=== PATIENT | female | born 1995 | race Caucasian/White ===

== ENCOUNTER 2019-05-27 13:36 | Outpatient (RCR) | payer OTHER, MEDICAID, SELFPAY ==
[2019-05-28] MEDS: RHO(D) IMMUNE GLOBULIN 300 MCG SYRINGE IM (13:28)
== END 2019-08-25 23:59 | disposition home or self-care (01) ==
LOC: ANHLAB 13:36
PROVIDERS: PCP Physician Assistant; Visit Provider Obstetrics & Gynecology
DX: Z29.13 Encounter for prophylactic Rho(D) immune globulin (principal); O36.0990 Maternal care for other rhesus isoimmunization, unspecified trimester, not applicable or unspecified; Z3A.00 Weeks of gestation of pregnancy not specified
CPT/HCPCS: 36415; 86900; 86901; 90384; 96372; J2790

== ENCOUNTER 2019-08-04 09:43 | Inpatient (IN) | payer OTHER, MEDICAID, SELFPAY ==
[2019-08-04] VITALS (59 sets, daily range): BP systolic 95–135; BP diastolic 46–99; PULSE 26–111; RESP 14–20; TEMP 36.1–36.7; O2SAT 90–100; BMI 35.9
--- NOTE | 2019-08-04 10:30 | LDADM ---
This patient, Lori Zamora, was admitted to Labor/Delivery/Recovery 120 on 08/04/19 at 09:43. Plans for surgery/ and pain management were discussed with patient. Patient/family oriented to hospital policies and general routines including ID bracelet, bed and alarms, visiting hours, pain management, procedures, bathroom and other care routines, personal items, smoking policy, room service/diet and guest tray routines, security routines, and visiting hours. Patient/Family are encouraged to report perceived risks to care and to ask questions if they do not understand what they are told or what they should do. See OBIX for further documentation.
[2019-08-04 10:46] LABS: Basophils Percent Auto 0.2 % (0.2-1.2); Eosinophils Absolute Auto 0.1 K/mm3 (0-0.3); Eosinophils Percent Auto 0.6 % (0-4.4); Hematocrit 34.4 % (37.0-47.0); Hemoglobin 11.3 g/dL (12.0-15.0); Immature Granulocyte Absolute 0.05 K/mm3 (0.00-0.031); Immature Granulocyte Percent A 0.4 % (0-0.5); Lymphocytes Absolute Auto 1.58 K/mm3 (0.9-3.2); Lymphocytes Percent Auto 12.8 % (18.3-44.2); Mean Corpuscular HGB Conc 32.8 g/dl (32-36); Mean Corpuscular Hemoglobin 29.7 pg (26-34); Mean Corpuscular Volume 90.5 fl (80-100); Mean Platelet Volume 10.1 fl (7.4-10.4); Monocytes Absolute Auto 0.8 K/mm3 (0.1-0.6); Monocytes Percent Auto 6.3 % (2.6-8.5); Neutrophils Absolute Auto 9.8 K/mm3 (1.3-6.7); Neutrophils Percent Auto 79.7 % (45.5-73.1); Platelet Count Result 316 k/mm3 (150-375); Red Cell Distribution Width 13.1 % (11.5-14.5); White Blood Count 12.3 K/mm3 (4.5-10.0)
[2019-08-04] MEDS: LACTATED RINGERS 1,000 ML 999 ML IV CONT ×2 (11:05→11:35)
--- NOTE | 2019-08-04 11:12 | WPDANESEPPF ---
Anes - Initial Pre Proc Eval Procedure: Operation Date: 08/04/19 12:00 Proposed Procedures p Repeat Section With Bilateral Tubal Ligation - Marquez Payan MD Date/Time: 08/04/19 11:12 Surgeon: Marquez Payan MD Pre Op Diagnosis: Prior / Desires Sterilization Patient Data Age: 23 Gender: F Height: 5 ft 8 in Weight: 107.3 kg Last Vital Signs Pulse 83 08/04/19 10:54 BP 122/75 08/04/19 10:54 Allergies Allergy/AdvReac Type Severity Reaction Status Date / Time No Known Allergies Allergy Verified 08/04/19 10:26 Home Medications Medication Instructions Recorded Confirmed Type aripiprazole 5 mg PO DAILY 08/04/19 08/04/19 History aripiprazole 10 mg PO DAILY 08/04/19 08/04/19 History aspirin 81 mg PO DAILY 08/04/19 08/04/19 History bupropion HCl 150 mg PO DAILY 08/04/19 08/04/19 History calcium carbonate-vitamin D3 1 tablet PO DAILY 08/04/19 08/04/19 History cetirizine 10 mg PO DAILY PRN 08/04/19 08/04/19 History citalopram 40 mg PO DAILY 08/04/19 08/04/19 History folic acid 1 mg PO DAILY 08/04/19 08/04/19 History vit-iron fum-folic ac 1 tablet PO DAILY 08/04/19 08/04/19 History [ Vitamin] Laboratory Tests 08/04/19 08/04/19 10:36 10:36 WBC 12.3 K/mm3 H K/mm3 (4.5-10.0) RBC 3.80 M/mm3 L M/mm3 (4.2-5.4) Hgb 11.3 g/dL L g/dL (12.0-15.0) Hct 34.4 % L % (37.0-47.0) MCV 90.5 fl fl (80-100) MCH 29.7 pg pg (26-34) MCHC 32.8 g/dl g/dl (32-36) RDW 13.1 % % (11.5-14.5) Plt Count 316 k/mm3 k/mm3 (150-375) MPV 10.1 fl fl (7.4-10.4) Immature Gran % (Auto) 0.4 % % (0-0.5) Neut % (Auto) 79.7 % H % (45.5-73.1) Lymph % (Auto) 12.8 % L % (18.3-44.2) [place] % (Auto) 6.3 % % (2.6-8.5) Eos % (Auto) 0.6 % % (0-4.4) Baso % (Auto) 0.2 % % (0.2-1.2) Lymph # (Auto) 1.58 K/mm3 K/mm3 (0.9-3.2) [place] # (Auto) 0.8 K/mm3 H K/mm3 (0.1-0.6) Eos # (Auto) 0.1 K/mm3 K/mm3 (0-0.3) Baso # (Auto) 0.0 K/mm3 K/mm3 (0.0-0.1) Abs Immat Gran (auto) 0.05 K/mm3 H K/mm3 (0.00-0.031) Absolute Neuts (auto) 9.8 K/mm3 H K/mm3 (1.3-6.7) Absolute Nucleated RBC 0.0 K/mm3 K/mm3 (0.0-0.012) Nucleated RBC % 0.0 % % (0.0-0.2) RPR Pending Patient hx anesthesia problems: none Family hx anesthesia problems: none PMFSH Past Medical History Medical History ADHD Anxiety Anes - Eval Final PreProcedure Day of Procedure 08/04/19 11:12 Patient weight: obese Heart: regular rate and rhythm Lungs: clear to auscultation Airway: Mallampati scale class II Neurological: alert and oriented Last oral intake: >/= 8 hours ASA classification: III Emergent: no Anesthetic plan: proceed Anesthesia type and monitoring: regional spinal and standard monitoring Informed Consent: The patient's anesthetic plan and its attendant risks and benefits were discussed with the patient/family/POA. Questions were solicited and answers provided to the satisfaction of the patient/family/POA.
--- NOTE | 2019-08-04 11:26 | P.HP_ITS ---
H&P: HPI History of Present Illness Chief complaint: Prior / Desires Sterilization Narrative: Lori Zamora is 23-year-old 011 who has had care with Dr. Cantu records are on the chart there have been no significant abnormalities. Presents for repeat delivery. Also discussed p ermanence failure rate increased risk of ectopic and regret for tubal ligation she does desire to proceed. Review of Systems Review of Systems: All systems reviewed & are unremarkable except as noted in HPI and below PMFSH Past Medical History Medical History ADHD Anxiety Meds Home Medications and Allergies Home Medications Medication Instructions Recorded Confirmed Type aripiprazole 5 mg PO DAILY 08/04/19 08/04/19 History aripiprazole 10 mg PO DAILY 08/04/19 08/04/19 History aspirin 81 mg PO DAILY 08/04/19 08/04/19 History bupropion HCl 150 mg PO DAILY 08/04/19 08/04/19 History calcium carbonate-vitamin D3 1 tablet PO DAILY 08/04/19 08/04/19 History cetirizine 10 mg PO DAILY PRN 08/04/19 08/04/19 History citalopram 40 mg PO DAILY 08/04/19 08/04/19 History folic acid 1 mg PO DAILY 08/04/19 08/04/19 History vit-iron fum-folic ac 1 tablet PO DAILY 08/04/19 08/04/19 History [ Vitamin] Allergies Allergy/AdvReac Type Severity Reaction Status Date / Time No Known Allergies Allergy Verified 08/04/19 10:26 Vital Signs Vital Signs - 24 hr 08/04/19 10:54 Pulse Rate 83 Blood Pressure 122/75 Exam Const: General: no acute distress Resp: Auscultation: clear to auscultation bilaterally Cardio: Rate: regular rate Rhythm: regular rhythm GI: GI Palp: Yes Soft to palpation Other: Fundal height of 39cm heart tones 140. H&P: Results Labs Labs: Short CBC 08/04/19 Range/Units 10:36 WBC 12.3 H (4.5-10.0) K/mm3 Hgb 11.3 L (12.0-15.0) g/dL Hct 34.4 L (37.0-47.0) % Plt Count 316 (150-375) k/mm3 Assessment and Plan Assessment and plan (1) Term : Code(s): Z34.90 - Encounter for supervision of normal , unspecified, unspecified trimester Status: Acute (2) Previous delivery affecting : Code(s): O34.219 - Maternal care for unspecified type scar from previous delivery Status: Acute (3) Encounter for female sterilization procedure: Code(s): Z30.2 - Encounter for sterilization Status: Acute Additional Plan Proceed with repeat delivery and bilateral tubal ligation.
[2019-08-04] MEDS: ceFAZolin 2 GM/D5W 50 ML 2 GM/50 ML BAG IVPB (11:45)
--- NOTE | 2019-08-04 12:32 | PM.OBPRVD ---
OB - Delivery Note Procedure Procedure: Procedures Operation Date: 08/04/19 12:00 <No data on this case meets the specified criteria> Route of delivery: (With bilateral tubal ligation) Specimen: Yes (Fallopian tube x2) Estimated blood loss (mL): 200 Anesthesia type: Spinal Disposition: PACU Narrative: Patient prepped and draped usual manner for this procedure. Pfannenstiel incision was made carried down the fascia. Fascial incision was extended bilaterally the length of the skin incisions. Superiorly and inferiorly dissected away from the rectus muscles. Peritoneum was readily entered bladder flap was developed. Uterus scored with clear fluid noted extended bilaterally the length of the lower segment. Vertex was delivered with nuchal cord reduced x2 rest of baby was then delivered with the cord clamped and cut and the placenta delivered manually. Uterus was exteriorized cleared of membranes and clots and closed using 0 Monocryl in a running interlocking manner with good approximation hemostasis noted. Bilaterally the fallopian tubes were grasped doubly ligated using 0 plain suture in the loop of tissue was removed. The uterus was returned to the abdomen both stumps were hemostatic and intact. Fascia was then approximated using 0 Vicryl from left angle midline and then the right angle to the midline with good approximation hemostasis noted. Subcutaneous tissue was approximated 0 0 plain suture. [place] were then used to approximate skin edges. At this point seizure was considered terminated with immediate postop condition mother baby both excellent. Baby Weeks of gestation at delivery: 39 gender: Male Weight (pounds): 7 Weight (ounces): 14 score one minute: 8 score five minutes: 9
[2019-08-04] MEDS: OXYTOCIN 30 UNITS/NS 500 ML 30 UNITS/500 ML BAG 125 UNITS IV CONT (14:57)
--- NOTE | 2019-08-04 15:28 | PC.NURSE ---
Patient transferred to post room #285 per stretcher from labor and delivery. Support person present. Oriented to unit, room, information board, rooming in, admission packet and security measures. Patient verbalizes understanding.
[2019-08-04] MEDS: KETOROLAC 30 MG/ML VIAL (*BKC) IV PUSH (17:03)
[2019-08-04] MEDS: DEXTROSE 5%/0.45% SOD CHL 1,000 ML 125 ML IV CONT (19:22)
[2019-08-05] MEDS: IBUPROFEN 600 MG TABLET PO ×4 (01:38→21:30)
[2019-08-05 04:30] VITALS: BP 103/63; PULSE 77; RESP 16; TEMP 36.8; O2SAT 99
[2019-08-05 05:39] LABS: Basophils Percent Auto 0.2 % (0.2-1.2); Eosinophils Absolute Auto 0.1 K/mm3 (0-0.3); Eosinophils Percent Auto 0.8 % (0-4.4); Hematocrit 29.6 % (37.0-47.0); Hemoglobin 9.6 g/dL (12.0-15.0); Immature Granulocyte Absolute 0.04 K/mm3 (0.00-0.031); Immature Granulocyte Percent A 0.3 % (0-0.5); Lymphocytes Absolute Auto 1.33 K/mm3 (0.9-3.2); Lymphocytes Percent Auto 10.9 % (18.3-44.2); Mean Corpuscular HGB Conc 32.4 g/dl (32-36); Mean Corpuscular Hemoglobin 29.5 pg (26-34); Mean Corpuscular Volume 91.1 fl (80-100); Mean Platelet Volume 10.2 fl (7.4-10.4); Monocytes Absolute Auto 1.2 K/mm3 (0.1-0.6); Monocytes Percent Auto 10.1 % (2.6-8.5); Neutrophils Absolute Auto 9.4 K/mm3 (1.3-6.7); Neutrophils Percent Auto 77.7 % (45.5-73.1); Platelet Count Result 246 k/mm3 (150-375); Red Blood Count 3.25 M/mm3 (4.2-5.4); White Blood Count 12.2 K/mm3 (4.5-10.0)
[2019-08-05 07:40] LABS: Rapid Plasma Reagin Non-Reactive (NonReactive)
[2019-08-05 08:00] VITALS: BP 120/77; PULSE 81; RESP 18; TEMP 36.8; O2SAT 98
[2019-08-05] MEDS: MULTIVIT/MIN/PREN/FOL AC/IRON TABLET 1 TAB PO (08:51)
[2019-08-05] MEDS: DOCUSATE SODIUM 100 MG CAPSULE PO ×2 (08:51→16:04)
[2019-08-05] MEDS: SIMETHICONE 80 MG TAB.CHEW PO ×4 (08:52→21:30)
[2019-08-05] MEDS: ARIPIPRAZOLE 10 MG TABLET PO (10:06)
[2019-08-05] MEDS: ARIPIPRAZOLE 5 MG TABLET PO (10:06)
--- NOTE | 2019-08-05 10:26 | PM.OBPNVD ---
OB - PN: Subj Subjective Date/time seen: 08/05/19 10:26 Interval history: 23yo s/p repeat LTCS and BTL on 08/03. Doing well. Pain well controlled. Tolerating diet, no nausea/vomiting. Urinating freely. Passing flatus Patient comments: no complaints and pain well controlled [place] baby status: doing well OB - PN: Obj Data Labs CBC & Chem 7: 08/05/19 04:47 Labs: Laboratory Results - last 24 hr 08/04/19 08/04/19 08/04/19 10:36 10:36 10:36 WBC 12.3 H RBC 3.80 L Hgb 11.3 L Hct 34.4 L MCV 90.5 MCH 29.7 MCHC 32.8 RDW 13.1 Plt Count 316 MPV 10.1 Immature Gran % (Auto) 0.4 Neut % (Auto) 79.7 H Lymph % (Auto) 12.8 L [place] % (Auto) 6.3 Eos % (Auto) 0.6 Baso % (Auto) 0.2 Lymph # (Auto) 1.58 [place] # (Auto) 0.8 H Eos # (Auto) 0.1 Baso # (Auto) 0.0 Abs Immat Gran (auto) 0.05 H Absolute Neuts (auto) 9.8 H Absolute Nucleated RBC 0.0 Nucleated RBC % 0.0 RPR Non-reactive Blood Type A Negative Antibody Screen Positive Antibody Identification Inconclusive Antigen Identification Cancelled EVGENY, IgG Interpret Not Performed EVGENY, Poly Interpret Negative EVGENY, Complement Interp Not Performed 08/05/19 04:47 WBC 12.2 H RBC 3.25 L Hgb 9.6 L Hct 29.6 L MCV 91.1 MCH 29.5 MCHC 32.4 RDW 13.0 Plt Count 246 MPV 10.2 Immature Gran % (Auto) 0.3 Neut % (Auto) 77.7 H Lymph % (Auto) 10.9 L [place] % (Auto) 10.1 H Eos % (Auto) 0.8 Baso % (Auto) 0.2 Lymph # (Auto) 1.33 [place] # (Auto) 1.2 H Eos # (Auto) 0.1 Baso # (Auto) 0.0 Abs Immat Gran (auto) 0.04 H Absolute Neuts (auto) 9.4 H Absolute Nucleated RBC 0.0 Nucleated RBC % 0.0 RPR Blood Type Antibody Screen Antibody Identification Antigen Identification EVGENY, IgG Interpret EVGENY, Poly Interpret EVGENY, Complement Interp OB - PN A/P Assessment and Plan (1) Delivery by section: Status: Acute Assessment and Plan: Routine / postop care Pain management Ambulate Desires to go home tomorrow, on POD#2 (2) S/P tubal ligation: Code(s): Z98.51 - Tubal ligation status Status: Acute Time Spent With Patient Time: Total time spent is greater than 50% in coordination of care (as documented) at patient's floor/unit and/or counseling patient: Review of Systems Constitutional: Constitutional: Reports no additional constitutional complaints Cardiovascular: Cardiovascular: Reports no additional cardiovascular complaints Respiratory: Respiratory: Reports no additional respiratory complaints Gastrointestinal: Gastrointestinal: Reports no additional gastrointestinal complaints Genitourinary: Genitourinary: Reports no additional female genitourinary complaints Exam Const: General: no acute distress, alert and awake Orientation/consciousness: patient oriented x3 Resp: Effort & Inspection: normal respiratory effort Cardio: Rate: regular rate GI: Other: soft, nontender, nondistended. Fundus firm. Bandage in place clean and dry
[2019-08-05 12:25] VITALS: BP 106/67; PULSE 82; RESP 18; TEMP 36.3; O2SAT 97
--- NOTE | 2019-08-05 12:34 | WPDANLDNPN2 ---
Anes-Prog Note L&D-Neuraxial Date/Time: 08/05/19 12:34 Neuraxial medications: intrathecal PF morphine Opiod-related complaints: none Patient feedback: Patient satisfied with post-operative pain management.
--- NOTE | 2019-08-05 12:34 | WPDANLDPN2 ---
Anes-Prog Note L&D Date/Time: 08/05/19 12:34 Comfortable throughout: section Neuraxial method: spinal Epidural/Spinal procedure site: clean & non-tender Neuro status: Neuro function grossly intact. Cardiovascular status: normal Respiratory status: normal Airway patency: baseline Mental status: baseline Post-Op hydration status: normal Vital Signs: Last Vital Signs Temp 36.8 C 08/05/19 08:00 Pulse 81 08/05/19 08:00 Resp 18 08/05/19 08:00 BP 120/77 08/05/19 08:00 Pulse Ox 98 08/05/19 08:00 I/O: Intake & Output 08/04/19 08/05/19 08/05/19 23:59 07:59 15:59 Intake Total 100 Output Total 550 1200 Balance -550 -1100 Post-procedural complaints: none Patient feedback: Patient satisfied with anesthetic care.
[2019-08-05] MEDS: POLYSACCHARIDE IRON COMPLEX 150 MG CAPSULE PO (16:04)
[2019-08-05 21:30] VITALS: BP 132/91; PULSE 82; RESP 16; TEMP 36.9
[2019-08-06] MEDS: SIMETHICONE 80 MG TAB.CHEW PO ×2 (03:35→09:22)
[2019-08-06] MEDS: IBUPROFEN 600 MG TABLET PO ×2 (03:35→09:22)
[2019-08-06 08:25] VITALS: BP 127/80; PULSE 84; RESP 18; TEMP 37.1; O2SAT 100
[2019-08-06] MEDS: DOCUSATE SODIUM 100 MG CAPSULE PO (09:22)
[2019-08-06] MEDS: POLYSACCHARIDE IRON COMPLEX 150 MG CAPSULE PO (09:22)
[2019-08-06] MEDS: MULTIVIT/MIN/PREN/FOL AC/IRON TABLET 1 TAB PO (09:22)
--- NOTE | 2019-08-06 12:05 | PM.OBDSVD ---
DS: Diagnosis Admitting Diagnosis Admitting Diagnosis: Encounter for supervision of normal , unspecified, unspecified trimester Discharge Diagnosis (1) S/P tubal ligation: Code(s): Z98.51 - Tubal ligation status Status: Acute (2) Delivery by section: Status: Acute OB - DS: Summary OB Procedures : None OB Procedures Intrapartum: low cervical, transverse OB Procedures: : None Peripartum Data Procedures: Procedures Operation Date: 08/04/19 12:00 Actual Procedures Side Surgeon p Repeat Section With Bilateral Tubal Ligation Bilateral Marquez Payan MD Time Spent with Patient Time attestation: Total time spent providing and/or coordinating discharge services: Exam Const: General: no acute distress, alert and awake Orientation/consciousness: patient oriented x3 Resp: Effort & Inspection: normal respiratory effort Auscultation: clear to auscultation bilaterally Cardio: Rate: regular rate Rhythm: regular rhythm GI: Other: soft, nontender, nondistended. Fundus firm. Bandage in place clean and dry Neuro: General: patient oriented x3 DS: Data Data Completed and Pending Completed studies during hospitalization: Pending at discharge 08/04/19 12:18 Surgical [PTH] Routine Discharge Plan Discharge Attending physician on discharge: Marquez Payan Discharging Clinician: Johanna Arana Patient Disposition: Home, Self-Care Activity: as tolerated Diet: regular Discharge Instructions: Education: Mom and Baby Guide Given to: Mother Follow-Up: Call your delivering provider's office for an appointment to be seen next week for staple removal. Mom and baby should come to the [facility] for the follow-up appointment. Appointment Date/Time: August 07, 2019 at 9:00 am What to expect at your follow-up visit: Blood Pressure Check Physical Assessment Call [phone] if you are unable to keep your appointment time. BREAST CARE: 1. Wear a snug supportive bra. 2. For engorgement discomfort: Bottle Feeding: A. May apply ice packs ABDOMINAL INCISION: (if applicable) 1. Allow incision to air dry 2. Do NOT use lotions for powders on your incision 3. When showering, allow soap and water to run over the incision, but do not wash incision PERINEAL CARE: 1. Until bleeding stops, use your fannie bottle after urinating 2. Change your pad frequently throughout the day 3. You may take sitz baths several times a day (fill your bathtub with warm water and soak for 20 minutes.) Do NOT bathe in the water 4. No tub baths until seen by your physician - You may shower ACTIVITY: 1. Rest as much as possible. 2. Do not exercise or lift anything heavier than your baby (such as laundry or other children.) 3. Avoid stairs or driving as much as possible. 4. Do not put anything into the vagina. No douching, tampons, or sexual activity until seen by physician. NOTIFY PHYSICIAN IF YOU HAVE ANY QUESTIONS OR IF ANY OF THE FOLLOWING SYMPTOMS OCCUR: 1. If your incision becomes red, swollen, or more painful than what you have experienced in the hospital. 2. If your vaginal bleeding becomes foul smelling. 3. If your vaginal bleeding becomes more heavy than a period or if your bleeding changes from pink to bright red. However, you may pass an occasional walnut-sized clot once or twice for the first week . 4. If you experience a sharp, shooting pain in your calves. 5. If you discover a hard, reddened area on your breast or if you experience flu-like symptoms. DIET: 1. Eat regular, well-balanced meals. 2. Drink plenty of fluids daily. Stand Alone Forms: General Discharge Information Follow-up/Referrals: Marquez Payan MD [Physician] - Discharge Medications: New hydrocodone-acetaminophen 5-325 mg Tablet 1 tab PO Q6-8H PRN (Reason: Moderate Pain (4-6)) Qty: 20 RF:
[2019-08-07 09:35] VITALS: BP 134/88; PULSE 102; RESP 16; TEMP 36.8; O2SAT 98
== END 2019-08-06 12:05 | disposition home or self-care (01) | DRG 785 ==
LOC: ANHSURGERY 09:57 → ANHLDR 09:58 → ANHOB2 15:33
PROVIDERS: Admitting Provider Obstetrics & Gynecology; PCP Physician Assistant; Visit Provider Obstetrics & Gynecology
PROC: 10D00Z1 Extraction of Products of Conception, Low, Open Approach (ICD-10-PCS; CPT 59514; principal; 2019-08-04 12:00)
DX: O34.211 Maternal care for low transverse scar from previous cesarean delivery (principal); Z37.0 Single live birth; Z3A.39 39 weeks gestation of pregnancy; O99.824 Streptococcus B carrier state complicating childbirth; O99.344 Other mental disorders complicating childbirth; F90.9 Attention-deficit hyperactivity disorder, unspecified type; F41.9 Anxiety disorder, unspecified; O99.214 Obesity complicating childbirth; E66.9 Obesity, unspecified; Z30.2 Encounter for sterilization
CPT/HCPCS: 36415; 85025; 86592; 86850; 86880; 86900; 86901; 86902; 88302; A9270; J0131; J0690; J1200; J1885; J2274; J2370; J2405; J2590; J7120